=== PATIENT | female | born 1990 ===

== ENCOUNTER → 2024-05-16 08:30 | Outpatient (BNV) | payer OTHER, SELFPAY | PROVIDERS: Visit Provider Internal Medicine | DX: I48.91 Unspecified atrial fibrillation (principal) | CPT/HCPCS: 93248 ==

== ENCOUNTER → 2024-05-16 10:00 | Outpatient (REF) | payer OTHER, SELFPAY | LOC: HO.CARD 10:00 | PROVIDERS: Visit Provider Nurse Practitioner | DX: R00.2 Palpitations (principal) | CPT/HCPCS: 93246 ==